=== PATIENT | female | born 1980 | race Caucasian/White ===

== ENCOUNTER 2017-07-17 21:42 | Emergency (ER) | payer SELFPAY ==
[~2017-07-17] VITALS: Ht 167.6 cm; Wt 102.1 kg
--- NOTE | 2017-07-17 22:20 | NUR ---
TO BED 1 A 37 YO FEMALE PATIENT BB SELF; NAUSEA, VOMIT, BURNING LIKE EPIGASTRIC PAIN X 2 DAYS. PATIENT IS AAOX4, NAD NOTED. NONDIAPHORETIC. VSS. AMBULATORY. COMFORT MEASURES RENDERED.
--- NOTE | 2017-07-17 23:04 | NUR ---
Dr Hermosillo at bedside to evaluate patient.
[2017-07-17] MEDS ORDERED: KETOROLAC TROMETHAMINE INJ 30 MG/ML VIAL ONE (23:23)
--- NOTE | 2017-07-17 23:30 | NUR ---
started a saline lock on the rac g20, blood drawn and sent to lab.
[2017-07-17] MEDS: IV NS 0.9% 500 ML BAG IV ONE (23:35)
[2017-07-17] MEDS: KETOROLAC TROMETHAMINE INJ 30 MG/ML VIAL IV ONE (23:36)
--- NOTE | 2017-07-17 23:36 | NUR ---
medicated patient as ordered by Dr Hermosillo.
[2017-07-17 23:45] LABS: BASOPHILS % (AUTO) 0.7 % (0.0-2.0); EOSINOPHILS # (AUTO) 0.1 /CMM (0.0-0.7); EOSINOPHILS % (AUTO) 1.8 % (0.0-6.0); HEMATOCRIT 45 % (33-45); HEMOGLOBIN 15.2 g/dL (11.5-14.8); LYMPHOCYTES # (AUTO) 2.1 /CMM (0.8-4.8); LYMPHOCYTES % (AUTO) 31.1 % (20.0-44.0); MEAN CORPUSCULAR HEMOGLOBIN 31 PG (26.0-33.0); MEAN CORPUSCULAR HGB CONC 34 g/dl (31.0-36.0); MEAN CORPUSCULAR VOLUME 92 fL (82-100); MONOCYTES # (AUTO) 0.6 /CMM (0.1-1.30); MONOCYTES % (AUTO) 8.6 % (2.0-12.0); NEUTROPHILS % (AUTO) 57.8 % (43.0-81.0); PLATELET COUNT (AUTO) 264 /CMM (150-450); RDW COEFFICIENT OF VARIATION 13.5 (11.5-15.0); RED BLOOD CELL COUNT(AUTO) 4.89 MIL/uL (4.0-5.2); WHITE BLOOD COUNT (AUTO) 6.8 K/uL (4.3-11.0)
--- NOTE | 2017-07-17 23:45 | NUR ---
ongoing ultrasound at bedside.
[2017-07-17 23:57] LABS: CREATININE 0.8 mg/dL (0.6-1.3); POTASSIUM 3.5 mmol/L (3.5-5.1)
[2017-07-18 00:03] LABS: ALBUMIN 3.3 g/dL (3.4-5.0); BILIRUBIN,TOTAL 0.2 mg/dL (0.2-1.0)
[2017-07-18] MEDS ORDERED: DICYCLOMINE HCL INJ 20 MG/2 ML AMPUL IM ONE (01:23)
[2017-07-18] MEDS: DICYCLOMINE HCL INJ 20 MG/2 ML AMPUL IM ONE (01:27)
--- NOTE | 2017-07-18 02:23 | NUR ---
patient to radiology.
[2017-07-18 02:58] VITALS: BP 122/69
--- NOTE | 2017-07-18 02:58 | NUR ---
IV removed. Catheter intact and site benign. Pressure and 4x4 applied to site. No bleeding noted. Patient discharged to home in stable condition. Written and verbal after care instructions given. Patient verbalizes understanding of instruction. Patient is ambulatory with steady gait, nad noted. vss. no further complaints.
== END 2017-07-18 02:59 | disposition home or self-care (01) ==
LOC: ER 21:42
DX: R10.13 Epigastric pain (principal); R11.10 Vomiting, unspecified
CPT/HCPCS: 36415; 76705-TC; 80048-TC; 80076-TC; 83690-TC; 84703-TC; 85025-TC; A4606; J0500; J1885; J7040; Z7610